=== PATIENT | male | born 1955 | race Caucasian/White ===

== ENCOUNTER 2019-04-19 05:36 | Emergency (ER) | payer OTHER ==
[2019-04-19 06:17] LABS: Basophils % (Auto) 0.3 % (0.0-1.8); Eosinophils # (Auto) 0.1 K/mm3 (0.0-0.4); Eosinophils % (Auto) 0.8 % (0.0-4.3); Hematocrit 36.3 % (35.5-45.6); Hemoglobin 11.6 gm/dl (11.8-15.2); Lymphocytes # (Auto) 1.9 K/mm3 (1.2-5.4); Lymphocytes % (Auto) 17.4 % (13.4-35.0); Mean Corpuscular HGB Conc 32 % (32-34); Mean Corpuscular Volume 71 fl (84-94); Monocytes % (Auto) 8.6 % (0.0-7.3); Platelet Count 492 K/mm3 (140-440); Red Blood Count 5.12 M/mm3 (3.65-5.03); Red Cell Distribution Width 15.5 % (13.2-15.2)
[2019-04-19 06:30] LABS: Bilirubin,Urine NEG (Negative); Blood,Urine SM (Negative); Color,Urine Yellow (Yellow); Mucus,Urine 2+ /HPF; Protein,Urine <15 mg/dL mg/dL (Negative); Urobilinogen,Urine < 2.0 mg/dL (<2.0)
[2019-04-19 06:38] LABS: Alanine Aminotransferase 25 units/L (7-56); Albumin 4.2 g/dL (3.9-5); BUN/Creatinine Ratio 18; Blood Urea Nitrogen 20 mg/dL (9-20); Hemolysis Index 4
--- NOTE | 2019-04-19 07:09 | Emergency Department Report ---
HPI - General Chief Complaint: Abdominal Pain Time Seen by Provider: 04/19/19 06:54 - HPI HPI: 63-year-old male presents to the emergency department with a complaint of a one-week history of present worsening mid-upper abdominal pain. It is a sharp pain and intermittent. He denies any nausea or vomiting but is having some mild diarrhea. Patient has a history of some type of intestinal surgery done in [facility] but he does not know what the condition was or diagnosis that required surgery to be done. He went to see his primary care physician recently at [place] for the symptoms and was placed on, what sounds like, a stool softener. The patient does not speak any Azeri and he has a family member at bedside who is translating. ED Past Medical Hx - Past Medical History Previous Medical History?: No - Surgical History Past Surgical History?: Yes Additional Surgical History: Part of large intestine removed. right last 2 fingers removed - Social History Smoking Status: Current Every Day Smoker Substance Use Type: Alcohol ED Review of Systems ROS: Stated complaint: ABD PAIN Other details as noted in HPI Comment: All other systems reviewed and negative Constitutional: denies: chills, fever Eyes: denies: eye pain, vision change ENT: denies: ear pain, throat pain Respiratory: denies: cough, shortness of breath Cardiovascular: denies: chest pain, palpitations Gastrointestinal: abdominal pain, diarrhea. denies: nausea, vomiting Genitourinary: denies: dysuria, discharge Musculoskeletal: denies: back pain, arthralgia Skin: denies: rash, lesions Neurological: denies: headache, weakness Physical Exam - Physical Exam Vital Signs: Vital Signs 04/19/19 06:55 Temperature 97.6 F Pulse Rate 79 Respiratory 17 Rate Blood Pressure 138/78 [Right] O2 Sat by Pulse 99 Oximetry Physical Exam: GENERAL: The patient is well-developed well-nourished. HENT: Normocephalic. Atraumatic. Patient has moist mucous membranes. EYES: Extraocular motions are intact. NECK: Supple. Trachea is midline. CHEST/LUNGS: Clear to auscultation. There is no respiratory distress noted. HEART/CARDIOVASCULAR: Regular. There is no tachycardia. There is no murmur. ABDOMEN: Abdomen is soft. Upper abdominal tenderness to palpation. No guarding. Patient has normal bowel sounds. There is no abdominal distention. SKIN: Skin is warm and dry. NEURO: The patient is awake, alert, and cooperative. The patient has no focal neurologic deficits. MUSCULOSKELETAL: There is no tenderness or deformity. There is no evidence of acute injury. : No palpable hernia. ED Course Vital Signs 04/19/19 06:55 Temperature 97.6 F Pulse Rate 79 Respiratory 17 Rate Blood Pressure 138/78 [Right] O2 Sat by Pulse 99 Oximetry - Consultations Consultation #1: I called and spoke with the general surgeon on-call, Dr. Johnson, who looked at the CT result and saw the patient in the emergency department and feels that the patient is safe for discharge home regarding the right inguinal hernia. 04/19/19 14:14 ED Medical Decision Making - Lab Data Result diagrams: 04/19/19 05:45 04/19/19 05:45 - Medical Decision Making This patient presented with a one-week history of progressive worsening upper abdominal pain. His labs have been unremarkable. CT scan of the abdomen and pelvis shows a small right inguinal hernia with a "knuckle" of bowel in it without signs of obstruction, as well as a right sided adrenal mass that looks different than a "simple adenoma." The inguinal hernia was not visible or pa lpable on examination. This is most likely not the reason for the patient's abdominal pain. He was seen in the emergency department by the general surgeon systems development consultant who agrees with outpatient follow-up regarding the hernia. The patient will also need some outpatient evaluation of the adrenal mass but it is not something that requires a medical admission or emergent surgical intervention. His vital signs and stable throughout his ED course. The patient was given discharge instructions to follow-up with the primary care physician including in regards to the adrenal mass, a referral for gastroenterology for abdominal pain and their questions and concerns about a colonoscopy, and instructions to return to the emergency Department with any worsening of his symptoms or any acute distress. - Differential Diagnosis pancreatitis, cholelithiasis, cholecystitis, gastritis, malignancy Critical Care Time: No Critical care attestation.: If time is entered above; I have spent that time in minutes in the direct care of this critically ill patient, excluding procedure time. ED Disposition Clinical Impression: Right inguinal hernia, Adrenal mass, right Abdominal pain Qualifiers: Abdominal location: generalized Qualified Code(s): R10.84 - Generalized abdominal pain Disposition: - TO HOME OR SELFCARE Is pt being admited?: No Condition: Stable Instructions: Inguinal Hernia (ED), Abdominal Pain (ED) Additional Instructions: Please follow-up with your primary care physician in the next few days regarding your abdominal pain, as well as the CT finding of a right adrenal mass. This adrenal mass will need to be evaluated and your primary care physician can guide you as to what the next step is and what further evaluation or testing is necessary. I am giving you a referral for a local petrophysical engineer, Dr. Renee, to follow up regarding your abdominal pain and your questions about a referral for a colonoscopy. I am also giving you a referral for Dr. Ann, the general surgeon who saw you in the emergency department, to follow up regarding your inguinal hernia. Return to the emergency Department with any worsening of your symptoms or any acute distress. Referrals: [facility] [Outside] - 3-5 Days CRUZ RENEE MD [Staff Physician] - 3-5 Days YARA ANN MD [Staff Physician] - 3-5 Days
[2019-04-19] MEDS ORDERED: NACL 0.9% 1000 ML 1,000 ML IV ONE (08:06)
[2019-04-19] MEDS ORDERED: MORPHINE IV ONE (08:06)
--- NOTE | 2019-04-19 09:47 | Cat Scan Report ---
CT ABDOMEN AND PELVIS WITH CONTRAST HISTORY: Upper / Mid Abd pain, hx of intestinal surgery. COMPARISON: None. TECHNIQUE: CT images of the abdomen and pelvis were obtained following administration of intravenous contrast. All CT scans at this location are performed using CT dose reduction for ALARA by means of automated exposure control. CONTRAST: 100 ml of intravenous contrast administered. FINDINGS: Lungs/bones: There is mild bibasilar atelectasis. Degenerative changes are present in the spine and pelvis with no acute osseous abnormality. Abdomen/pelvis: There is a small mass in the posterior hepatic segment which measures 2.3 cm in maxi mal dimension on image #22 and shows nodular peripheral enhancement as may be seen with a hemangioma. A tiny hypodensity in the anterior segment has the appearance of the cyst. The liver is otherwise un remarkable. The gallbladder, spleen, pancreas, left adrenal gland, and proximal GI tract appear unrem arkable. There are tiny renal cysts. There is a heterogeneous right adrenal mass measuring 3.1 cm in maximal dimension on image #44 of series #3. The urinary bladder and prostate appear unremarkable with no pelvic free fluid. No acute colonic abno rmality identified. The terminal ileum is unremarkable. There is a small right inguinal hernia contai kristine a knuckle of bowel with no bowel obstruction or inflammatory change. IMPRESSION: 1. Small right inguinal hernia containing a knuckle of bowel without obstruction or inflammatory hill ge. 2. Additional incidental findings as above notable for a right adrenal mass which does not have the a ppearance of a simple adenoma. Signer Name: Jordin Henao MD Signed: 04/19/2019 9:42 AM Workstation Name: [id number]
[2019-04-19 11:10] VITALS: BP 135/76
== END 2019-04-19 11:39 | disposition home or self-care (01) ==
LOC: ED 05:36
DX: K40.90 Unilateral inguinal hernia, without obstruction or gangrene, not specified as recurrent (principal); E27.9 Disorder of adrenal gland, unspecified; F17.200 Nicotine dependence, unspecified, uncomplicated; Z98.890 Other specified postprocedural states
CPT/HCPCS: 36415; 74177; 80053; 81001; 85025; 96361; 96374; 99284; J2270; J7030; Q9967

== ENCOUNTER 2021-12-19 05:36 | Day surgery (SDC) | payer MEDICARE, OTHER ==
[2021-12-16 11:18] LABS: Hematocrit 41.3 % (35.5-45.6); Hemoglobin 13.6 gm/dl (11.8-15.2); Mean Corpuscular HGB Conc 33 % (32-34); Platelet Count 404 K/mm3 (140-440); Red Blood Count 5.91 M/mm3 (3.65-5.03); Red Cell Distribution Width 15.5 % (13.2-15.2)
[2021-12-16 11:23] LABS: Mean Corpuscular Volume 70 fl (84-94)
[2021-12-16 11:34] LABS: Blood Urea Nitrogen 20 mg/dL (9-20); Calcium 9.6 mg/dL (8.4-10.2); Hemolysis Index 7
[2021-12-16 11:42] LABS: BUN/Creatinine Ratio 29
[2021-12-19] MEDS ORDERED: ACETAMINOPHEN 500 MG TAB PO SCH (06:00)
[2021-12-19] MEDS ORDERED: LACTATED RINGERS 1,000 ML IV SCH (06:00)
[2021-12-19] MEDS ORDERED: MIDAZOLAM 2 MG/2 ML INJ IV NR (06:00)
[2021-12-19] MEDS ORDERED: metroNIDAZOLE/NS 500 MG/100 ML 500 MG/100 ML BAG IV NR (06:00)
[2021-12-19] MEDS ORDERED: ceFAZolin/STERILE WATER 2 GM/20 ML SYRINGE IV NR (06:00)
--- NOTE | 2021-12-19 07:22 | Anesthesia Day of Surgery ---
Anesthesia Day of Surgery - Day of Surgery Patient Examined: Yes Patient H&P Reviewed: Yes Patient is NPO: Yes
--- NOTE | 2021-12-19 07:24 | Anesthesia Consultation ---
Anesthesia Consult and Med Hx Date of service: 12/19/21 - Airway Anesthetic Teeth Evaluation: Edentulous ROM Head & Neck: Adequate Mental/Hyoid Distance: Adequate Mallampati Class: Class II Intubation Access Assessment: Good - Pulmonary Exam CTA: Yes - Cardiac Exam Cardiac Exam: RRR - Pre-Operative Health Status ASA Pre-Surgery Classification: ASA2 Proposed Anesthetic Plan: MAC - Pulmonary Hx Smoking: Yes (1/2 PACK CIGARETTES A DAY) - Cardiovascular System Hx Hypertension: Yes (amilodipine this am) - Central Nervous System Hx Psychiatric Problems: No - Other Systems Hx Alcohol Use: Yes (RARELY) Hx Substance Use: No Hx Cancer: No
[2021-12-19] MEDS ORDERED: propofoL 200 MG/20 ML VIAL IV ONE ×2 (07:37→07:38)
[2021-12-19] MEDS ORDERED: LIDOCAINE MPF (2%) 20 MG/1 ML VIAL 5 ML ONE (07:40)
[2021-12-19] MEDS ORDERED: HYDROmorphone 1 MG/1 ML INJ IV PRN (08:00)
[2021-12-19] MEDS ORDERED: HYDROcodone/ACETAMINOPHEN 5-325 MG TAB PO PRN (08:00)
[2021-12-19] MEDS ORDERED: LIDOCAINE 2%/EPINEPHRINE 1:200,000 VIAL (20 ML) INFILTRATI ONE (09:13)
[2021-12-19] MEDS ORDERED: BUPIVACAINE/PF (0.5%) 5 MG/1 ML 30 ML VIAL INFILTRATI ONE (09:14)
[2021-12-19] MEDS ORDERED: GLYCOPYRROLATE 0.4 MG/2 ML INJ ONE (09:38)
--- NOTE | 2021-12-19 10:45 | Operative Report ---
Operative Report Operative Report: Date: 12/19/2021 Preop diagnosis: Epigastric pain, GERD, iron deficiency anemia, rectal mass Postop diagnosis: Same Z-line at 40 cm punctate erosions of the antrum rectal prolapse Procedure: Esophagogastroduodenoscopy with biopsy of antrum, colonoscopy with biopsy of rectal prolapse Surgeon: Dr. Diego Anesthesia: MAC IV sedation Specimen: Biopsy of antrum for H. pylori and biopsy of the rectal prolapse Estimated blood loss: Less than 5 cc. Procedure: EGD: Patient is taken into the endoscopic suite. Timeouts are completed. Under IV sedation and monitored anesthesia care bite block is placed. The flexible upper endoscope was advanced through the hypopharynx, and cricopharyngeus. Cords are visualized and are normal. The scope was advanced through the thoracic esophagus which is normal. The LES is visualized at 40 cm. There is no signs of advanced erosions no tumors. Scope was advanced through the LES and retroflexed. No hiatal hernia seen. Scope was returned to forward-looking position and advanced through the midportion of the stomach where the antrum and incisura are visualized. Punctate erosions and areas suggestive of prior gastric ulcers are seen . A biopsy of the antrum was obtained for H. pylori. Scope was advanced through the pylorus and second and third portion of the duodenum are visualized and are normal. The scope was then withdrawn. Biopsy of the LES is obtained. The procedure is ended. COLONOSCOPY: Findings: Rectal exam is performed. A partiall rectal prolapse is found and reduced. Scope was advanced through the rectum into the rectosigmoid colon. The sigmoid colon is inspected and is normal. The transverse colon is identified and inspected and is normal. Scope was then advanced down the ascending colon to the cecum. The seneca's foot ileocecal valve and appendiceal aperture are identified. Tip of the scope was confirmed to be in the right lower quadrant by palpation. Scope was slowly withdrawn confirming the above findings. Several biopsies of the rectal prolapse are obtained. The scope was then removed and the procedure is ended.
[2021-12-19] MEDS ORDERED: HEPARIN/NS 5000 UNIT/500ML 1,000 ML IR ONE (10:47)
[2021-12-19] MEDS ORDERED: HEPARIN 10,000 UNITS/10 ML VIAL ONE (10:47)
[2021-12-19] MEDS ORDERED: LIDOCAINE (2%) 20 MG/1 ML VIAL 50 ML MDV INFILTRATI ONE (10:48)
--- NOTE | 2021-12-19 10:49 | Short Stay Summary ---
Short Stay Documentation Date of service: 12/19/21 - History H&P: obtained from office - Allergies and Medications Current Medications: Allergies No Known Allergies Allergy (Verified 12/12/21 11:30) Home Medications Medication Instructions Recorded Confirmed Last Taken Type Amlodipine Besylate [Norvasc] 5 mg PO DAILY 12/16/21 12/19/21 12/19/21 History AtorvaSTATin [Lipitor] 20 mg PO QHS 12/16/21 12/16/21 Unknown History Docusate Sodium [Colace] 100 mg PO DAILY 12/16/21 12/16/21 Unknown History Active Medications Acetaminophen (Acetaminophen 500 Mg Tab) 1,000 mg PO PREOP BRANDT Stop: 12/19/21 21:00 Last Admin: 12/19/21 08:36 Dose: 1,000 mg Hydrocodone Bitart/Acetaminophen (Hydrocodone/Acetaminophen 5-325 Mg Tab) 2 each PO ONCE PRN PRN Reason: Pain, Moderate (4-6) Stop: 12/19/21 17:00 Cefazolin Sodium (Cefazolin/Sterile Water 2 Gm/20 Ml Syringe) 2 gm IV PREOP NR Stop: 12/19/21 23:00 Hydromorphone HCl (Hydromorphone 1 Mg/1 Ml Inj) 0.5 mg IV Q10MIN PRN PRN Reason: Pain , Severe (7-10) Stop: 12/19/21 17:00 Metronidazole (Flagyl 500 Mg/100 Ml) 500 mg in 100 mls @ 200 mls/hr IV PREOP NR; Protocol Stop: 12/19/21 23:00 Lactated Ringer's (Lactated Ringers) 1,000 mls @ 100 mls/hr IV DIRECT BRANDT Stop: 12/19/21 23:59 Last Admin: 12/19/21 06:30 Dose: 100 mls/hr Midazolam HCl (Midazolam 2 Mg/2 Ml Inj) 2 mg IV PREOP NR Stop: 12/19/21 21:00 Last Admin: 12/19/21 08:40 Dose: 2 mg - Brief post op/procedure progress note Date of procedure: 12/19/21 Pre-op diagnosis: Iron deficiency anemia and rectal mass Post-op diagnosis: other (Punctate erosions of the antrum and rectal prolapse) Anesthesia: MAC Findings: Punctate erosions of the antrum of the stomach and partial rectal prolapse Surgeon: ZACARIAS CALZADA Estimated blood loss: minimal Pathology: list (Biopsy of antrum and biopsy of rectal prolapse) Specimen disposition: to lab Condition: stable - Disposition Condition at discharge: Good Disposition: 01 HOME / SELF CARE / HOMELESS Short Stay Discharge Plan Additional Instructions: Follow up with Dr CALZADA in 1 week. Call [phone] for any questions. Follow up with: MAU KRAMER FNP [Primary Care Provider] - 7 Days Forms: Outpatient Surgery DC Inst.
--- NOTE | 2021-12-19 12:01 | Post Anesthesia Evaluation ---
- Post Anesthesia Evaluation Patient Participated: Yes Airway Patent: Yes Stable Respiratory Function: Yes Nausea/Vomiting: No Temp > 96.8F: Yes Pain Manageable: Yes Adequeate Hydration: Yes Anesthesia Complications: No
[2021-12-19 16:30] VITALS: BP 138/64
== END 2021-12-19 05:37 | disposition home or self-care (01) ==
LOC: OR 05:36
PROVIDERS: ATTEND Surgery
DX: D50.9 Iron deficiency anemia, unspecified (principal); K21.9 Gastro-esophageal reflux disease without esophagitis; R10.13 Epigastric pain; K62.89 Other specified diseases of anus and rectum; K31.89 Other diseases of stomach and duodenum; F17.210 Nicotine dependence, cigarettes, uncomplicated; E78.00 Pure hypercholesterolemia, unspecified; I10 Essential (primary) hypertension; M19.90 Unspecified osteoarthritis, unspecified site; Z72.89 Other problems related to lifestyle; Z79.899 Other long term (current) drug therapy; Z98.890 Other specified postprocedural states
CPT/HCPCS: 36415; 43239; 45380; 80048; 85027; 88305; 88342; J0690; J1644; J1815; J2250; J2704; J3490; J7120; J7517; U0003